=== PATIENT | male | born 1970 | race Caucasian/White ===

== ENCOUNTER 2020-09-24 05:53 | Day surgery (SDC) | payer BC ==
[2020-09-24] MEDS ORDERED: Lactated Ringers 1,000 ML IV SCH (06:30)
[2020-09-24] MEDS ORDERED: DIPRIVAN 200 MG/20 ML IV ONE ×2 (07:44→07:48)
[2020-09-24 08:31] VITALS: O2SAT 95
[2020-09-24 09:18] VITALS: BP 130/78; PULSE 78
--- NOTE | 2020-09-24 10:27 | OP ---
SURGERY DATE/TIME: 09/24/2020729 PREOPERATIVE DIAGNOSIS: Screening colonoscopy. POSTOPERATIVE DIAGNOSES: 1) Normal colon. 2) Mild diverticulosis. PROCEDURE: Colonoscopy. SURGEON: Memo Saavedra M.D. ANESTHESIA: MAC by Henry Carpenter CRNA. ESTIMATED BLOOD LOSS: None. SPECIMENS: None. DESCRIPTION OF PROCEDURE: After informed written consent was obtained, the patient was taken to the endoscopy suite. He was placed in left lateral decubitus position and anesthesia was titrated to the desired level of consciousness. A digital rectal exam showed normal sphincter tone and no internal lesions. The scope was inserted into the rectum and sequentially the entire colonic mucosa was traversed. The level of cecum was reached and verified with direct visualization of ileocecal valve. Upon withdrawal careful mucosal inspection revealed no gross abnormalities other some scattered diverticula mostly in the sigmoid colon. Prior to withdrawal retroflexion was performed and showed no internal lesions. The scope was removed and the patient was transferred to the recovery room in good condition.
== END 2020-09-24 09:20 | disposition home or self-care (01) ==
LOC: SDC 05:53
PROVIDERS: ATTEND Family Medicine
DX: Z12.11 Encounter for screening for malignant neoplasm of colon (principal); K57.30 Diverticulosis of large intestine without perforation or abscess without bleeding
CPT/HCPCS: J2704